=== PATIENT | male | born 1990 | race African-American/Black ===

== ENCOUNTER 2017-03-31 02:22 | Emergency (ER) | payer MEDICAID ==
[~2017-03-31] VITALS: Ht 177.8 cm; Wt 81.6 kg
[2017-03-31 02:35] VITALS: BP 164/103
[2017-03-31] MEDS ORDERED: KETOROLAC TROMETH 60MG/2ML VIAL IM ONE (07:30)
== END 2017-03-31 19:25 | disposition home or self-care (01) ==
LOC: ER 02:22
DX: M43.6 Torticollis (principal); F17.210 Nicotine dependence, cigarettes, uncomplicated; X50.1XXA Overexertion from prolonged static or awkward postures, initial encounter; Y93.89 Activity, other specified; Y99.8 Other external cause status; Y92.89 Other specified places as the place of occurrence of the external cause
CPT/HCPCS: 99283; J1885

== ENCOUNTER → 2017-09-20 | Emergency (ER) | payer MEDICAID | END | disposition left against medical advice (07) | LOC: ER 18:32 | DX: M54.2 Cervicalgia (principal); Z53.21 Procedure and treatment not carried out due to patient leaving prior to being seen by health care provider ==

== ENCOUNTER 2019-05-08 09:50 | Emergency (ER) | payer MEDICAID ==
[~2019-05-08] VITALS: Ht 175.3 cm; Wt 90.7 kg
[2019-05-08 10:01] VITALS: BP 148/83
== END 2019-05-08 12:50 | disposition home or self-care (01) ==
LOC: ER 09:53
DX: G44.209 Tension-type headache, unspecified, not intractable (principal); H81.12 Benign paroxysmal vertigo, left ear; F17.210 Nicotine dependence, cigarettes, uncomplicated

== ENCOUNTER 2019-10-21 01:15 | Emergency (ER) | payer MEDICAID ==
[~2019-10-21] VITALS: Ht 175.3 cm; Wt 90.5 kg
[2019-10-21 06:34] VITALS: BP 136/87
== END 2019-10-21 07:37 | disposition home or self-care (01) ==
LOC: ER 01:15
DX: R51 Headache (principal); R42 Dizziness and giddiness; G47.9 Sleep disorder, unspecified; F17.210 Nicotine dependence, cigarettes, uncomplicated
CPT/HCPCS: 70450

== ENCOUNTER 2019-11-13 17:49 | Emergency (ER) | payer MEDICAID ==
[~2019-11-13] VITALS: Ht 175.3 cm; Wt 92.1 kg
[2019-11-13 18:30] VITALS: BP 159/93
== END 2019-11-13 20:58 | disposition left against medical advice (07) ==
LOC: ER 17:49
DX: M54.2 Cervicalgia (principal); Z53.21 Procedure and treatment not carried out due to patient leaving prior to being seen by health care provider

== ENCOUNTER 2019-12-08 20:35 | Emergency (ER) | payer MEDICAID ==
[~2019-12-08] VITALS: Ht 177.8 cm; Wt 90.3 kg
[2019-12-08 20:56] VITALS: BP 137/87
== END 2019-12-08 23:53 | disposition left against medical advice (07) ==
LOC: ER 20:35
DX: M54.2 Cervicalgia (principal); Z53.21 Procedure and treatment not carried out due to patient leaving prior to being seen by health care provider

== ENCOUNTER 2019-12-17 22:59 | Emergency (ER) | payer MEDICAID ==
[~2019-12-17] VITALS: Ht 175.3 cm; Wt 91.2 kg
[2019-12-18] MEDS ORDERED: PROMETHAZINE-DM 5 ML ORAL SYRUP PO ONE (00:30)
[2019-12-18] MEDS ORDERED: ACETAMINOPHEN 500 MG TAB PO ONE (00:30)
[2019-12-18 00:55] VITALS: BP 135/70
== END 2019-12-18 01:02 | disposition home or self-care (01) ==
LOC: ER 22:59
DX: J06.9 Acute upper respiratory infection, unspecified (principal); M79.10 Myalgia, unspecified site; F17.210 Nicotine dependence, cigarettes, uncomplicated
CPT/HCPCS: 70450; 71045

== ENCOUNTER → 2020-01-30 | Emergency (ER) | payer MEDICAID ==
[~2020-01-30] VITALS: Ht 177.8 cm; Wt 92.5 kg
[2020-01-30 23:30] VITALS: BP 132/96
== END | disposition home or self-care (01) ==
LOC: ER 23:14
DX: K08.89 Other specified disorders of teeth and supporting structures (principal); Z53.21 Procedure and treatment not carried out due to patient leaving prior to being seen by health care provider

== ENCOUNTER 2020-06-17 08:06 | Emergency (ER) | payer MEDICAID ==
[~2020-06-17] VITALS: Ht 175.3 cm; Wt 88.5 kg
[2020-06-17 08:22] VITALS: BP 149/83
== END 2020-06-17 10:06 | disposition home or self-care (01) ==
LOC: ER 08:06
DX: S96.911A Strain of unspecified muscle and tendon at ankle and foot level, right foot, initial encounter (principal); J40 Bronchitis, not specified as acute or chronic; F17.210 Nicotine dependence, cigarettes, uncomplicated; X58.XXXA Exposure to other specified factors, initial encounter; Y93.89 Activity, other specified; Y92.89 Other specified places as the place of occurrence of the external cause; Y99.8 Other external cause status
CPT/HCPCS: 71045; 73600

== ENCOUNTER 2020-11-29 16:33 | Emergency (ER) | payer MEDICAID ==
[~2020-11-29] VITALS: Ht 172.7 cm; Wt 92.5 kg
[2020-11-29 16:38] VITALS: BP 143/97
[2020-11-29] MEDS ORDERED: IBUPROFEN 800 MG TAB PO ONE (17:45)
== END 2020-11-29 17:49 | disposition home or self-care (01) ==
LOC: ER 16:33
DX: M79.672 Pain in left foot (principal); F17.210 Nicotine dependence, cigarettes, uncomplicated
CPT/HCPCS: 73630

== ENCOUNTER 2022-01-05 | Emergency (ER) | payer MEDICAID ==
[~2022-01-05] VITALS: Ht 185.4 cm; Wt 117.9 kg
[2022-01-05] MEDS ORDERED: LORazepam 2MG/ML-1ML VIAL IV ONE (00:30)
[2022-01-05] MEDS ORDERED: HALOPERIDOL LACTATE 5 MG/ML INJ VIAL IM ONE (00:45)
[2022-01-05 02:18] LABS: Amphetamine Screen, Urine NEGATIVE (NEGATIVE); Barbiturate Scree,Urine NEGATIVE (NEGATIVE); Benzodiazephine Screen, Urine NEGATIVE (NEGATIVE); Cannabinoid Screen, Urine NEGATIVE (NEGATIVE); Cocaine Screen, Urine NEGATIVE (NEGATIVE); Opiate Scree,Urine NEGATIVE (NEGATIVE); Phencyclidine Screen, Urine NEGATIVE (NEGATIVE)
[2022-01-05 02:27] LABS: Urine Bacteria NONE SEEN /hpf (None Seen); Urine Blood Negative /uL (Negative); Urine Hyaline Cast FEW /lpf (0 - 2); Urine Specific Gravity 1.008 (1.001-1.035); Urine WBC <1 /hpf (0 - 3)
[2022-01-05 03:38] LABS: Basophils # (auto) 0.1 10 ^3/uL (0-0.2); Basophils % (auto) 0.5 % (0.0-2.0); Eosinophils # (auto) 0 10 ^3/uL (0-0.8); Hematocrit 49.1 % (41.0-53.0); Hemoglobin 16.4 g/dL (13.5-17.5); Lymphocytes # (auto) 1.3 10 ^3/uL (0.4-5.4); Lymphocytes % (auto) 10.9 % (10.0-50.0); Mean Corpuscular Hemoglobin 28.8 pg (28.0-32.0); Mean Corpuscular Hgb Conc. 33.5 g/dL (32.0-36.0); Mean Corpuscular Volume 85.9 fL (80.0-100.0); Monocytes # (auto) 0.4 10 ^3/uL (0-1.3); Monocytes % (auto) 3.8 % (0.0-12.0); Neutrophils # (auto) 9.8 10 ^3/uL (1.6-8.6); Neutrophils % (auto) 84.8 % (37.0-80.0); Nucleated Red Blood Cells % 0.1 %; Red Blood Cells 5.71 10^6/uL (4.5-5.90); White Blood Cell 11.6 10^3/uL (4.4-10.8)
[2022-01-05 03:48] LABS: Potassium 4.5 mmol/L (3.5-5.1)
[2022-01-05 03:50] LABS: BUN/Creatinine Ratio 9.4
[2022-01-05 03:53] LABS: Bilirubin, Total 0.3 mg/dL (0.2-1.0); Total Protein 7.7 g/dL (6.4-8.2)
[2022-01-05 06:43] VITALS: BP 112/70
== END 2022-01-05 06:46 | disposition home or self-care (01) ==
LOC: EDUNIT# → EDBD → ER 00:05
DX: F15.10 Other stimulant abuse, uncomplicated (principal); F12.10 Cannabis abuse, uncomplicated; F17.210 Nicotine dependence, cigarettes, uncomplicated
CPT/HCPCS: 36415; 80053; 80307; 81001; 85025; 96372; 96374; 99285; J1630; J2060

== ENCOUNTER 2022-05-12 07:57 | Emergency (ER) | payer MEDICAID ==
[~2022-05-12] VITALS: Ht 175.3 cm; Wt 75.0 kg
[2022-05-12] MEDS ORDERED: HYDR50CA PO (08:57)
[2022-05-12 09:02] VITALS: BP 144/92
== END 2022-05-12 09:07 | disposition home or self-care (01) ==
LOC: ER 07:57
DX: G47.00 Insomnia, unspecified (principal); F17.210 Nicotine dependence, cigarettes, uncomplicated; Z76.0 Encounter for issue of repeat prescription; Z79.899 Other long term (current) drug therapy

== ENCOUNTER 2022-09-02 19:46 | Emergency (ER) | payer MEDICAID ==
[~2022-09-02] VITALS: Ht 175.3 cm; Wt 90.7 kg
[~2022-09-02 19:46] MED LIST: HYDR50CA PO
[2022-09-02 21:49] VITALS: BP 130/89
== END 2022-09-02 22:02 | disposition home or self-care (01) ==
LOC: ER 19:46
DX: Z00.00 Encounter for general adult medical examination without abnormal findings (principal); F17.210 Nicotine dependence, cigarettes, uncomplicated; F12.90 Cannabis use, unspecified, uncomplicated; F15.90 Other stimulant use, unspecified, uncomplicated; Z59.00 Homelessness unspecified

== ENCOUNTER 2022-10-19 10:50 | Emergency (ER) | payer MEDICAID ==
[~2022-10-19] VITALS: Ht 172.7 cm; Wt 93.1 kg
[2022-10-19 11:58] LABS: Basophils # (auto) 0 10 ^3/uL (0-0.2); Basophils % (auto) 0.3 % (0.0-2.0); Eosinophils # (auto) 0.1 10 ^3/uL (0-0.8); Eosinophils % (auto) 0.8 % (0.0-7.0); Hematocrit 50.3 % (41.0-53.0); Hemoglobin 17.2 g/dL (13.5-17.5); Lymphocytes # (auto) 2.4 10 ^3/uL (0.4-5.4); Lymphocytes % (auto) 25.8 % (10.0-50.0); Mean Corpuscular Hemoglobin 29.8 pg (28.0-32.0); Mean Corpuscular Hgb Conc. 34.2 g/dL (32.0-36.0); Mean Corpuscular Volume 87.3 fL (80.0-100.0); Monocytes # (auto) 0.7 10 ^3/uL (0-1.3); Monocytes % (auto) 7.1 % (0.0-12.0); Neutrophils # (auto) 6.1 10 ^3/uL (1.6-8.6); Nucleated Red Blood Cells % 0.2 %; Red Blood Cells 5.76 10^6/uL (4.5-5.90); Red Cell Distribution Width 13.2 % (11.8-14.3); White Blood Cell 9.2 10^3/uL (4.4-10.8)
[2022-10-19 12:09] LABS: Calcium 9.4 mg/dL (8.5-10.1); Potassium 4.5 mmol/L (3.5-5.1)
[2022-10-19 12:15] LABS: Albumin 4.4 g/dL (3.4-5.0); BUN/Creatinine Ratio 13.1; Bilirubin, Total 0.4 mg/dL (0.2-1.0); Total Protein 8.3 g/dL (6.4-8.2)
[2022-10-19 13:01] LABS: INR 0.96 (0.9-1.15); Partial Thromboplastin Time 31.6 sec (24.6-33.4)
[2022-10-19 13:22] LABS: Urine Bacteria NONE SEEN /hpf (None Seen); Urine Blood Negative /uL (Negative); Urine Specific Gravity 1.015 (1.001-1.035); Urine WBC <1 /hpf (0 - 3)
[2022-10-19 13:34] LABS: Alcohol, Urine < 3.0 mg/dL (0-10); Amphetamine Screen, Urine NEGATIVE (NEGATIVE); Barbiturate Scree,Urine NEGATIVE (NEGATIVE); Benzodiazephine Screen, Urine NEGATIVE (NEGATIVE); Cannabinoid Screen, Urine NEGATIVE (NEGATIVE); Cocaine Screen, Urine NEGATIVE (NEGATIVE); Opiate Scree,Urine NEGATIVE (NEGATIVE); Phencyclidine Screen, Urine NEGATIVE (NEGATIVE)
[2022-10-19 18:58] VITALS: BP 150/97
== END 2022-10-19 19:00 | disposition home or self-care (01) ==
LOC: ER 10:50
DX: R06.02 Shortness of breath (principal); G47.30 Sleep apnea, unspecified; Z79.899 Other long term (current) drug therapy
CPT/HCPCS: 36415; 71046; 80053; 80307; 81001; 83735; 83880; 84484; 85025; 85379; 85610; 85730; 93005

== ENCOUNTER 2024-01-10 21:42 | Emergency (ER) | payer SELFPAY ==
[~2024-01-10] VITALS: Ht 172.7 cm; Wt 82.2 kg
[2024-01-10 22:05] VITALS: BP 151/104; PULSE 75; RESP 16; TEMP 98.4; O2SAT 100
[2024-01-11] MEDS ORDERED: IBUP-1456 PO (02:35)
== END 2024-01-11 02:58 | disposition home or self-care (01) ==
LOC: ER 21:42
DX: M79.642 Pain in left hand (principal); M79.641 Pain in right hand; F17.210 Nicotine dependence, cigarettes, uncomplicated; Z79.1 Long term (current) use of non-steroidal anti-inflammatories (NSAID); Z79.899 Other long term (current) drug therapy

== ENCOUNTER 2024-02-06 00:28 | Emergency (ER) | payer SELFPAY ==
[~2024-02-06] VITALS: Ht 172.7 cm; Wt 79.0 kg
[~2024-02-06 00:28] MED LIST changes: +IBUP-1456 PO
[2024-02-06] MEDS ORDERED: PRED20TA2 PO (02:03)
[2024-02-06] MEDS ORDERED: IBUP1TAB5 PO (02:03)
[2024-02-06 02:15] VITALS: BP 142/89; PULSE 105; RESP 16; TEMP 98.3; O2SAT 97
[2024-02-06] MEDS: IBUPROFEN 800 MG TAB PO ONE (02:25)
[2024-02-06] MEDS: predniSONE 20 MG TAB PO ONE (02:26)
== END 2024-02-06 02:30 | disposition home or self-care (01) ==
LOC: ER 00:28
DX: M25.532 Pain in left wrist (principal); M25.531 Pain in right wrist; R20.2 Paresthesia of skin; F17.210 Nicotine dependence, cigarettes, uncomplicated; Z79.1 Long term (current) use of non-steroidal anti-inflammatories (NSAID); Z79.899 Other long term (current) drug therapy
CPT/HCPCS: 99283; J7512

== ENCOUNTER 2024-02-11 01:19 | Emergency (ER) | payer MEDICAID, OTHER ==
[~2024-02-11] VITALS: Ht 172.7 cm; Wt 80.5 kg
[~2024-02-11 01:19] MED LIST changes: +IBUP1TAB5 PO; +PRED20TA2 PO
[2024-02-11 01:26] VITALS: BP 140/90; PULSE 76; RESP 18; TEMP 97.9; O2SAT 97
[2024-02-11] MEDS ORDERED: NABU-72 PO (03:25)
== END 2024-02-11 03:44 | disposition home or self-care (01) ==
LOC: ER 01:19
DX: M79.10 Myalgia, unspecified site (principal); R51.9 Headache, unspecified; F17.210 Nicotine dependence, cigarettes, uncomplicated; F15.90 Other stimulant use, unspecified, uncomplicated; Z79.899 Other long term (current) drug therapy

== ENCOUNTER 2024-02-14 01:05 | Emergency (ER) | payer MEDICAID ==
[~2024-02-14] VITALS: Ht 172.7 cm; Wt 77.2 kg
[~2024-02-14 01:05] MED LIST changes: +NABU-72 PO
[2024-02-14 01:13] VITALS: BP 140/91; PULSE 81; RESP 18; TEMP 99.5
[2024-02-14 04:31] VITALS: O2SAT 100
== END 2024-02-14 04:46 | disposition home or self-care (01) ==
LOC: ER 01:05
DX: R51.9 Headache, unspecified (principal); F17.210 Nicotine dependence, cigarettes, uncomplicated; F15.10 Other stimulant abuse, uncomplicated
CPT/HCPCS: 70450

== ENCOUNTER 2024-08-16 16:56 | Emergency (ER) | payer MEDICAID ==
[~2024-08-16] VITALS: Ht 172.7 cm; Wt 74.2 kg
[2024-08-16 17:12] VITALS: BP 142/65; PULSE 92; RESP 18; O2SAT 98
--- NOTE | 2024-08-16 17:19 | ED.PDOC ---
History of Present Illness HPI Comments This is a 34-year-old male who comes in with chief complaint of tension headache. The patient states that the headache is on the right-hand side. The patient denies any nausea, vomiting or diarrhea. The patient denies any fever or chills. The patient states that he has been dealing with this headache for a pproximately 2-1/2 years. The patient states he does not have a primary care doctor at this time. At this time, the patient states that he is pain-free. Chief Complaint: Headache Time Seen by MD: 17:05 Primary Care Provider: NONE Reviewed Notes: Nurses Notes, Medications, Allergies (No allergies to medications) Allergies: Coded Allergies: NO KNOWN ALLERGIES (Unverified , 07/07/10) Home Meds Active Scripts Nabumetone (Nabumetone) 500 Mg Tab, 1 TAB PO BID PRN, #30 TAB Prov:ROSARIO SINCLAIR VOLUNTEER SERVICES SPECIALIST 02/11/24 Prednisone (Prednisone) 20 Mg Tab, 1 TAB PO DAILY PRN for 5 Days, #5 TAB Start tomorrow with foodstart tomorrowwith food Prov:ISRRAEL HARRELLALDA Q HYDROGENATION OPERATOR 02/06/24 Ibuprofen Micronized (Ibuprofen) 600 Mg Tab, 1 TAB PO Q6HPRN PRN, #20 TAB Prov:JULIO CESARNORALDA Q HYDROGENATION OPERATOR 02/06/24 Ibuprofen (Ibuprofen) 800 Mg Tab, 1 TAB PO TID PRN, #30 TAB 0 Refills Prov:CHRISTIN TIAN 01/11/24 Hydroxyzine Pamoate (Vistaril) 50 Mg Cap, 50 MG PO QHSP PRN, #20 CAP Prov:SCOT DHALIWAL 05/12/22 Information Source: Patient Mode of Arrival: Ambulatory Severity: Mild Timing: Months Duration: Intermittent Prehospital treatment: None Associated signs and symptoms No nausea or vomiting Past Medical History PAST MEDICAL HISTORY: Denies Surgical History: Denies all surgeries Family History Family History: Unknown Social History Smoker: Cigarettes, Less Than 1 Pack/Day Alcohol: Occasionally Drugs: Marijuana, Methamphetamine Lives In: Home Constitutional: denies: chills, diaphoresis, fatigue, fever, malaise, sweats, weakness, others EENTM: denies: blurred vision, double vision, ear bleeding, ear discharge, ear drainage, ear pain, ear ringing, eye pain, eye redness, hearing loss, mouth pain, mouth swelling, nasal discharge, nose bleeding, nose congestion, nose pain, photophobia, tearing, throat pain, throat swelling, voice changes, others Respiratory: denies: cough, hemoptysis, orthopnea, SOB at rest, shortness of breath, SOB with excertion, stridor, wheezing, others Cardiovascular: denies: chest pain, dizzy spells, diaphoresis, Dyspnea on exertion, edema, irregular heart beat, left arm pain, lightheadedness, palpitations, PND, syncope, others Gastrointestinal: denies: abdomen distended, abdominal pain, blood streaked bowels, constipated, diarrhea, dysphagia, difficulty swallowing, hematemesis, melena, nausea, poor appetite, poor fluid intake, rectal bleeding, rectal pain, vomiting, others Genitourinary: denies: burning, dysuria, flank pain, frequency, hematuria, incontinence, penile discharge, penile sore, pain, testicle pain, testicle swelling, urgency, others Neurological: denies: dizziness, fainting, headache, left sided numbness, left sided weakness, numbness, paresthesia, pre-existing deficit, right sided numbness, right sided weakness, seizure, speech problems, tingling, tremors, weakness, others Musculoskeletal: denies: back pain, gout, joint pain, joint swelling, muscle pain, muscle stiffness, neck pain, others Integumetry: denies: bruises, change in color, change in hair/nails, dryness, laceration, lesions, lumps, rash, wounds, others Allergic/Immunocompromised: denies: Difficulty Healing, Frequent Infections, Hives, Itching, others Hematologic/Lymphatic: denies: anemia, blood clots, easy bleeding, easy bruising, swollen glands, others Endocrine: denies: excessive hunger, excessive sweating, excessive thirst, excessive urination, flushing, intolerance to cold, intolerance to heat, unexplained weight gain, unexplained weight loss, others Psychiatric: denies: anxiety, bipolar disorder, depression, hopeless, panic disorder, schizophrenia, sleepless, suicidal, others Physical Exam General Appearance: No Apparent Distress HEENT: Normal ENT Inspection, Pharynx Normal, TMs Normal Neck: Full Range of Motion, Non-Tender, Normal, Normal Inspection Respiratory: Chest Non-Tender, Lungs Clear, No Accessory Muscle Use, No Respiratory Distress, Normal Breath Sounds Cardiovascular: No Edema, No JVD, No Murmur, No Gallop, Normal Peripheral Pulses, Regular Rate/Rhythm Breast Exam: Deferred Gastrointestinal: No Organomegaly, Non Tender, No Pulsatile Mass, Normal Bowel Sounds, Soft Genitalia: Deferred Pelvic: Deferred Rectal: Deferred Extremities: No calf tenderness, Normal capillary refill, Normal inspection, Normal range of motion, Non-tender, No pedal edema Musculoskeletal : Apperance: Normal Neurologic: Alert, plant safety leader II-XII nml as Tested, No Motor Deficits, Normal Affect, Normal Mood, No Sensory Deficits Cerebellar Function: Normal Reflexes: Normal Skin: Dry, Normal Color, Warm Lymphatic: No Adenopathy Was a procedure done? Was a procedure done?: No Differential Dx Considerations may include: Tension headache, migraine headache X-Ray, Labs, Meds, VS The patient was currently pain-free The patient was being discharged and told to follow up with his primary care doctor The patient will return to the emergency department's the condition worsens. Time of 1ST Reevaluation: 17:18 Reevaluation 1ST: Improved Patient Education/Counseling: Diagnosis, Treatment, Prognosis, Need For Follow Up Family Education/Counseling: No Family Present Departure 1 Departure Time of Disposition: 17:18 Impression: Primary Impression: Tension headache Disposition: 01 HOME / SELF CARE / HOMELESS Condition: Fair Discharged With: Self Critical Care Note Critical Care Time?: No Stability Stability form required: No Heart Score Heart Score: Heart Score Response (Comments) Value History N/A 0 EKG N/A 0 Age N/A 0 Risk Factors N/A 0 Troponin N/A 0 Total 0 NEPTALI SEYMOUR MD Aug 16, 2024 17:19
== END 2024-08-16 18:10 | disposition home or self-care (01) ==
LOC: ER 16:56
DX: G44.209 Tension-type headache, unspecified, not intractable (principal); F17.210 Nicotine dependence, cigarettes, uncomplicated; F12.90 Cannabis use, unspecified, uncomplicated; F15.90 Other stimulant use, unspecified, uncomplicated; Z79.899 Other long term (current) drug therapy

== ENCOUNTER 2024-08-27 13:39 | Emergency (ER) | payer MEDICAID ==
[~2024-08-27] VITALS: Ht 172.7 cm; Wt 70.9 kg
[2024-08-27 15:34] VITALS: BP 145/100; PULSE 99; RESP 16; TEMP 99.3; O2SAT 98
[2024-08-27] MEDS ORDERED: IBUP-1454 PO (16:08)
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
[2024-08-27] MEDS: KETOROLAC TROMETH 30 MG/ML 1ML VIAL IM ONE (16:14)
== END 2024-08-27 16:08 | disposition home or self-care (01) ==
LOC: ER 13:39
DX: M25.539 Pain in unspecified wrist (principal); M79.672 Pain in left foot; M79.671 Pain in right foot; F17.210 Nicotine dependence, cigarettes, uncomplicated; Z79.1 Long term (current) use of non-steroidal anti-inflammatories (NSAID); Z91.148 Patient's other noncompliance with medication regimen for other reason; Z79.899 Other long term (current) drug therapy; W05.1XXA Fall from non-moving nonmotorized scooter, initial encounter; Y93.89 Activity, other specified; Y92.89 Other specified places as the place of occurrence of the external cause; Y99.8 Other external cause status
CPT/HCPCS: 96372; 99283; J1885

== ENCOUNTER 2024-10-02 02:09 | Emergency (ER) | payer MEDICAID ==
[~2024-10-02] VITALS: Ht 177.8 cm; Wt 75.0 kg
[~2024-10-02 02:09] MED LIST changes: +IBUP-1454 PO
[2024-10-02 03:23] LABS: Basophils # (auto) 0.2 10 ^3/uL (0-0.2); Basophils % (auto) 1.6 % (0.0-2.0); Eosinophils # (auto) 0.1 10 ^3/uL (0-0.8); Eosinophils % (auto) 0.9 % (0.0-7.0); Hematocrit 45.7 % (41.0-53.0); Hemoglobin 15.4 g/dL (13.5-17.5); Lymphocytes # (auto) 2.1 10 ^3/uL (0.4-5.4); Lymphocytes % (auto) 21.7 % (10.0-50.0); Mean Corpuscular Hgb Conc. 33.7 g/dL (32.0-36.0); Mean Corpuscular Volume 86.2 fL (80.0-100.0); Monocytes # (auto) 0.7 10 ^3/uL (0-1.3); Monocytes % (auto) 6.7 % (0.0-12.0); Neutrophils # (auto) 6.8 10 ^3/uL (1.6-8.6); Neutrophils % (auto) 69.1 % (37.0-80.0); Platelet Count (auto) 317 10^3/uL (140-450); Red Blood Cells 5.31 10^6/uL (4.5-5.90); Red Cell Distribution Width 14.2 % (11.8-14.3); White Blood Cell 9.9 10^3/uL (4.4-10.8)
[2024-10-02 03:41] LABS: Alanine Aminotransferase 32 U/L (7-40); Albumin 4.5 g/dL (3.2-4.8); Alkaline Phosphatase 75 U/L (46-116); Anion Gap 6 (5-15); Aspartate Aminotransferase 25 U/L (13-40); BUN/Creatinine Ratio 14.4 (10.0-20.0); Bilirubin, Total 0.5 mg/dL (0.2-1.0); Blood Urea Nitrogen 13 mg/dL (9-23); Calcium 10.1 mg/dL (8.7-10.4); Carbon Dioxide 30 mmol/L (20-31); Chloride 105 mmol/L (98-107); Potassium 4.2 mmol/L (3.5-5.1); Sodium 141 mmol/L (136-145); Total Protein 7.1 g/dL (5.7-8.2)
--- NOTE | 2024-10-02 04:00 | ED.PDOC ---
Psychiatric HPI Comments 34y M who presents to the ED for chief complaint of mental health. Pt presents to the ED for multiple complaints. Pt states he is here for hand pain and states " hearning noises on the top of my head." Pt states he lives with mother but states when he doesnt stay with her, he is homeless. Pt in the ED, is noted to have flight of ideas and switching from topic topic. Pt states he has been previously hospitalized for psychiatric issues but is not able to specify what dx was given. Pt otherwise denies any active suicidal ideations at this time. Chief Complaint: Mental Health Time Seen by MD: 03:57 Primary Care Provider: NONE Reviewed Notes: Nurses Notes Information Source: Patient Mode of Arrival: Ambulatory Vital Signs Vital Signs Date Time Temp Pulse Resp B/P (MAP) Pulse Ox O2 Delivery O2 Flow Rate FiO2 10/02/24 02:30 98.2 83 18 142/83 (102) 100 Physical Exam General: Awake, alert and oriented. No acute distress. Skin: Skin in warm, dry and intact without rashes or lesions. HEENT: The head is normocephalic and atraumatic. Conjunctivae are clear without exudates or hemorrhage. Sclera is non-icteric. Neck: Normal range of motion. No JVD. Cardiac: Regular rate Respiratory: No signs of respiratory distress. No Stridor. Extremities: Upper and lower extremities are atraumatic in appearance without tenderness or deformity. Neurological: The patient is awake, alert and oriented to person, place, and time with normal speech. Speech is clear. There is no facial asymmetry. Psychiatric: Rapid pressured, tangential speech. Appropriate mood and affect. Poor judgement and insight. Positive auditory hallucinations. No suicidal or homicidal ideation. Review of Systems: As stated in HPI Past Medical History PAST MEDICAL HISTORY: Denies Surgical History: Denies all surgeries Family History Family History: Reviewed,noncontributory to illness, Unknown Social History Smoker: Cigarettes, Less Than 1 Pack/Day Alcohol: Occasionally Drugs: Marijuana, Methamphetamine Lives In: Home Was a procedure done? Was a procedure done?: No Psych Differential Dx Psych. Differential Dx: Depression, Schizoprenia, Suicidal Intoxication Differential Dx: Drug-Induced Psychosis, Encephalopathy, Substance Abuse Disorder Other Differentail Dx auditory hallucinations, homelessness X-Ray, Labs, Meds, VS Vital Signs Date Time Temp Pulse Resp B/P (MAP) Pulse Ox O2 Delivery O2 Flow Rate FiO2 10/02/24 02:30 98.2 83 18 142/83 (102) 100 Lab Test 10/02/24 03:00 Range/Units White Blood Count 9.9 4.4-10.8 10^3/uL Red Blood Count 5.31 4.5-5.90 10^6/uL Hemoglobin 15.4 13.5-17.5 g/dL Hematocrit 45.7 41.0-53.0 % Mean Corpuscular Volume 86.2 80.0-100.0 fL Mean Corpuscular Hemoglobin 29.0 28.0-32.0 pg Mean Corpuscular Hemoglobin Concent 33.7 32.0-36.0 g/dL Red Cell Distribution Width 14.2 11.8-14.3 % Platelet Count 317 140-450 10^3/uL Mean Platelet Volume 7.3 6.9-10.8 fL Neutrophils (%) (Auto) 69.1 37.0-80.0 % Lymphocytes (%) (Auto) 21.7 10.0-50.0 % Monocytes (%) (Auto) 6.7 0.0-12.0 % Eosinophils (%) (Auto) 0.9 0.0-7.0 % Basophils (%) (Auto) 1.6 0.0-2.0 % Neutrophils # (Auto) 6.8 1.6-8.6 10 ^3/uL Lymphocytes # (Auto) 2.1 0.4-5.4 10 ^3/uL Monocytes # (Auto) 0.7 0-1.3 10 ^3/uL Eosinophils # (Auto) 0.1 0-0.8 10 ^3/uL Basophils # (Auto) 0.2 0-0.2 10 ^3/uL Nucleated Red Blood Cells 0.0 % Sodium Level 141 136-145 mmol/L Potassium Level 4.2 3.5-5.1 mmol/L Chloride Level 105 98-107 mmol/L Carbon Dioxide Level 30 20-31 mmol/L Anion Gap 6 5-15 Blood Urea Nitrogen 13 9-23 mg/dL Creatinine 0.90 0.700-1.30 mg/dL Glomerular Filtration Rate Calc 114 >90 mL/min BUN/Creatinine Ratio 14.4 10.0-20.0 Serum Glucose 72 L 74-106 mg/dL Calcium Level 10.1 8.7-10.4 mg/dL Total Bilirubin 0.5 0.2-1.0 mg/dL Aspartate Amino Transferase (AST) 25 13-40 U/L Alanine Aminotransferase (ALT) 32 7-40 U/L Alkaline Phosphatase 75 46-116 U/L Total Protein 7.1 5.7-8.2 g/dL Albumin 4.5 3.2-4.8 g/dL Plasma/Serum Blood Alcohol < 3.0 <10 mg/dL Time of 1ST Reevaluation: 04:30 Reevaluation 1ST: Unchanged Patient Education/Counseling: Diagnosis, Treatment Family Education/Counseling: No Family Present Departure 1 Departure Time of Disposition: 05:38 Impression: Primary Impression: Encounter for psychiatric assessment Additional Impression: Auditory hallucinations Disposition: 30 STILL A PATIENT Condition: Stable Comments 34-year-old male presents for mental health evaluation. He is reporting claim auditor y hallucinations, he is not having suicidal or homicidal ideation.. Discussed with Dr. Welsh, psychiatrist - he will assess patient. Critical Care Note Critical Care Time?: No Stability Stability form required: No Heart Score Heart Score: Heart Score Response (Comments) Value History N/A 0 EKG N/A 0 Age N/A 0 Risk Factors N/A 0 Troponin N/A 0 Total 0 I personally scribed for JUSTICE ARRIAGA MD ([email or web address]) on 10/02/24 at 04:00. Electronically submitted by Janine Stuart ([email or web address]). I personally scribed for JUSTICE ARRIAGA MD ([email or web address]) on 10/02/24 at 04:02. Electronically submitted by Janine Stuart ([email or web address]). JUSTICE ARRIAGA MD Oct 02, 2024 04:00
[2024-10-02 04:02] LABS: Glucose 72 mg/dL (74-106)
[2024-10-02 04:35] LABS: Blood Alcohol < 3.0 mg/dL (<10)
--- NOTE | 2024-10-02 06:41 | DVHINCON2 ---
Date of Service if different f: Oct 02, 2024 Time of Service: 06:08 Consultation ([facility]) Consulting Physician: CAROLINA TURNER MD Labs Laboratory Tests Test 10/02/24 03:00 White Blood Count 9.9 10^3/uL (4.4-10.8) Red Blood Count 5.31 10^6/uL (4.5-5.90) Hemoglobin 15.4 g/dL (13.5-17.5) Hematocrit 45.7 % (41.0-53.0) Mean Corpuscular Volume 86.2 fL (80.0-100.0) Mean Corpuscular Hemoglobin 29.0 pg (28.0-32.0) Mean Corpuscular Hemoglobin Concent 33.7 g/dL (32.0-36.0) Red Cell Distribution Width 14.2 % (11.8-14.3) Platelet Count 317 10^3/uL (140-450) Mean Platelet Volume 7.3 fL (6.9-10.8) Neutrophils (%) (Auto) 69.1 % (37.0-80.0) Lymphocytes (%) (Auto) 21.7 % (10.0-50.0) Monocytes (%) (Auto) 6.7 % (0.0-12.0) Eosinophils (%) (Auto) 0.9 % (0.0-7.0) Basophils (%) (Auto) 1.6 % (0.0-2.0) Neutrophils # (Auto) 6.8 10 ^3/uL (1.6-8.6) Lymphocytes # (Auto) 2.1 10 ^3/uL (0.4-5.4) Monocytes # (Auto) 0.7 10 ^3/uL (0-1.3) Eosinophils # (Auto) 0.1 10 ^3/uL (0-0.8) Basophils # (Auto) 0.2 10 ^3/uL (0-0.2) Nucleated Red Blood Cells 0.0 % Sodium Level 141 mmol/L (136-145) Potassium Level 4.2 mmol/L (3.5-5.1) Chloride Level 105 mmol/L (98-107) Carbon Dioxide Level 30 mmol/L (20-31) Anion Gap 6 (5-15) Blood Urea Nitrogen 13 mg/dL (9-23) Creatinine 0.90 mg/dL (0.700-1.30) Glomerular Filtration Rate Calc 114 mL/min (>90) BUN/Creatinine Ratio 14.4 (10.0-20.0) Serum Glucose 72 mg/dL (74-106) Calcium Level 10.1 mg/dL (8.7-10.4) Total Bilirubin 0.5 mg/dL (0.2-1.0) Aspartate Amino Transf (AST/SGOT) 25 U/L (13-40) Alanine Aminotransferase (ALT/SGPT) 32 U/L (7-40) Alkaline Phosphatase 75 U/L (46-116) Total Protein 7.1 g/dL (5.7-8.2) Albumin 4.5 g/dL (3.2-4.8) Plasma/Serum Blood Alcohol < 3.0 mg/dL (<10) Appearance: Stated age Psychomotor activity: WNL Behavioral: Cooperative Eye contact: Appropriate Speech: WNL Affect: Appropriate, Mood Congruent Mood: Dysphoric Thought processes: Linear/Goal-directed Thought content: WNL Suicidal ideations: Absent Homicidal ideations: Absent Orientation: Person, Place, Time, Situation Memory intact: Recent Intellect: Average Abstractability: WNL Concentration: Adequate Attention: Adequate Judgement: WNL Insight: Poor Vitals Vital Signs Date Time Temp Pulse Resp B/P (MAP) Pulse Ox O2 Delivery O2 Flow Rate FiO2 10/02/24 02:30 98.2 83 18 142/83 (102) 100 Treatment plan discussed: With staff Medication adjusted: No Labs ordered: No Psychotherapy provided: No Type: Voluntary History of Present Illness Reason for Consult : psychiatric evaluation PER ED PHYSICIAN: 34y M who presents to the ED for chief complaint of mental health. Pt presents to the ED for multiple complaints. Pt states he is here for hand pain and states " hearning noises on the top of my head." Pt states he lives with mother but states when he doesnt stay with her, he is homeless. Pt in the ED, is noted to have flight of ideas and switching from topic topic. Pt states he has been previously hospitalized for psychiatric issues but is not able to specify what dx was given. Pt otherwise denies any active suicidal ideations at this time. PSYCHIATRIST HPI: The patient was seen and evaluated at [facility] ED via telepsychiatry platform. 34 yr old male reported having pain in his head. He reported he thinks it is due to the cold living on the streets. He reported his mood has been okay, but sometimes he reported feeling stressed about being homeless. He stated he feels like if he is warm he might be in better shape. He denied having symptoms consistent with depression, anxiety or psychotic disorder. He denied any recent use of substances although report use of drugs in the past. He denied having SI/HI/AVH. Past Psychiatric History : No h/o hospitalization or suicide attempt. Current medications: none Past Medical History : none Substance Use: Reported infrequent alcohol use, had drank a couple beers a day in the past. MJ-no use since 2009. Reported experimenting with other drugs but no recent use. Denied other drug use. Social History : Homeless in [place]. Lives with mother from time to time. DIAGNOSIS: ADJUSTMENT DISORDER Formulation: This 34 yr old male appears to suffer from adjustment disorder and homelessness. He has difficulty with the winter cold and may benefit from speaking with social work to get homeless resources. He does not warrant psychiatric hospitalization. Plan: 1. Safety. The patient is a low risk for suicide and may be managed as an outpatient. Recommend social work consult to give homeless resources. 2. Legal-voluntary. 3. Medications: No medications indicated at this time. 4. Case discussed with ED physician, Dr Gregory Abreu. 5. Please recontact psychiatry for further follow up or reevaluation. Assessment/Diagnosis/Plan Reviewed: Labs, Medications, Previous Orders CAROLINA TURNER MD Oct 02, 2024 05:20
[2024-10-02 07:40] VITALS: PULSE 98; RESP 16; O2SAT 98
[2024-10-02 09:40] VITALS: BP 146/81; PULSE 96; RESP 18; TEMP 98.1; O2SAT 97
== END 2024-10-02 09:45 | disposition home or self-care (01) ==
LOC: ER 02:09
DX: Z00.8 Encounter for other general examination (principal); R44.0 Auditory hallucinations; M79.643 Pain in unspecified hand; F17.210 Nicotine dependence, cigarettes, uncomplicated; F43.20 Adjustment disorder, unspecified; F12.10 Cannabis abuse, uncomplicated; F15.10 Other stimulant abuse, uncomplicated; Z59.02 Unsheltered homelessness
CPT/HCPCS: 36415; 80053; 80320; 85025

== ENCOUNTER 2024-10-08 18:42 | Emergency (ER) | payer MEDICAID ==
[~2024-10-08] VITALS: Ht 172.7 cm; Wt 70.5 kg
[2024-10-08 18:50] VITALS: BP 118/95; PULSE 98; RESP 18; O2SAT 96
--- NOTE | 2024-10-08 20:51 | ED.PDOC ---
Psychiatric HPI Comments 34 YEAR OLD MALE PRESENTS TO ER FOR A "WELLNESS CHECKUP". PATIENT PRESENTS TO ER ALERT AND ORIENTED X4, IN NO DISTRESS STATING HE IS HERE FOR A "WELLNESS CHECK". DENIES ANY CURRENT SYMPTOMS/COMPLAINTS. DENIES ANY PAIN. PATIENT PRESENTS AMBULATORY ON ARRIVAL, WITH STEADY GAIT, IN NO DISTRESS. PATIENT ENDORSES NO FURTHER SYMPTOMS/COMPLAINTS Chief Complaint: Anxiety Time Seen by MD: 19:05 Primary Care Provider: UNKNOWN Reviewed Notes: Nurses Notes, Medications, Allergies Information Source: Patient Mode of Arrival: Ambulatory Past Medical History PAST MEDICAL HISTORY: Denies Surgical History: Denies all surgeries Family History Family History: Unknown Social History Smoker: Cigarettes, Less Than 1 Pack/Day Alcohol: Occasionally Drugs: Marijuana, Methamphetamine Lives In: Home Constitutional: reports: others ( STATED IN HPI) EENTM: denies: blurred vision, double vision, ear bleeding, ear discharge, ear drainage, ear pain, ear ringing, eye pain, eye redness, hearing loss, mouth pain, mouth swelling, nasal discharge, nose bleeding, nose congestion, nose pain, photophobia, tearing, throat pain, throat swelling, voice changes, others Respiratory: denies: cough, hemoptysis, orthopnea, SOB at rest, shortness of breath, SOB with excertion, stridor, wheezing, others Cardiovascular: denies: chest pain, dizzy spells, diaphoresis, Dyspnea on exertion, edema, irregular heart beat, left arm pain, lightheadedness, palpitat ions, PND, syncope, others Gastrointestinal: denies: abdomen distended, abdominal pain, blood streaked bow els, constipated, diarrhea, dysphagia, difficulty swallowing, hematemesis, melena, nausea, poor appetite, poor fluid intake, rectal bleeding, rectal pain, vomiting, others Genitourinary: denies: burning, dysuria, flank pain, frequency, hematuria, incontinence, penile discharge, penile sore, pain, testicle pain, testicle swelling, urgency, others Neurological: denies: dizziness, fainting, headache, left sided numbness, left sided weakness, numbness, paresthesia, pre-existing deficit, right sided numbness, right sided weakness, seizure, speech problems, tingling, tremors, weakness, others Musculoskeletal: denies: back pain, gout, joint pain, joint swelling, muscle pain, muscle stiffness, neck pain, others Integumetry: denies: bruises, change in color, change in hair/nails, dryness, laceration, lesions, lumps, rash, wounds, others Allergic/Immunocompromised: denies: Difficulty Healing, Frequent Infections, Hives, Itching, others Hematologic/Lymphatic: denies: anemia, blood clots, easy bleeding, easy bruising, swollen glands, others Endocrine: denies: excessive hunger, excessive sweating, excessive thirst, excessive urination, flushing, intolerance to cold, intolerance to heat, unexplained weight gain, unexplained weight loss, others Psychiatric: denies: anxiety, bipolar disorder, depression, hopeless, panic disorder, schizophrenia, sleepless, suicidal, others Physical Exam General Appearance: No Apparent Distress HEENT: Normal ENT Inspection, PERRL/EOMI, Pharynx Normal, TMs Normal Neck: Full Range of Motion, Non-Tender, Normal Respiratory: Chest Non-Tender, Lungs Clear, No Accessory Muscle Use, No Respiratory Distress, Normal Breath Sounds Cardiovascular: No Murmur, No Gallop, Regular Rate/Rhythm Breast Exam: Deferred Gastrointestinal: No Organomegaly, Non Tender, No Pulsatile Mass, Normal Bowel Sounds, Soft Genitalia: Deferred Pelvic: Deferred Rectal: Deferred Extremities: Normal capillary refill, Normal range of motion Neurologic: Alert, warper fixer II-XII nml as Tested, No Motor Deficits, Normal Affect, Normal Mood, No Sensory Deficits Cerebellar Function: Normal Reflexes: Normal Skin: Dry, Normal Color, Warm Peripheral Pulses: 2+ Radial (R), 2+ Radial (L), 2+ Brachial (R), 2+ Brachial (L) Lymphatic: No Adenopathy Was a procedure done? Was a procedure done?: No Sedation Sedation?: No Psych Differential Dx Intoxication Differential Dx: Hallucinations, Dehydration, Schizophrenia X-Ray, Labs, Meds, VS Vital Signs Date Time Temp Pulse Resp B/P (MAP) Pulse Ox O2 Delivery O2 Flow Rate FiO2 10/08/24 18:50 99.3 98 18 118/95 (103) 96 METHAMPHETAMINE/CANNABIS CESSATION DISCUSSED AND ADVISED PATIENT IN NO DISTRESS DURING ER VISIT/PRIOR TO DISCHARGE ADVISED TO DRINK PLENTY OF FLUIDS ADVISED TO FOLLOW UP WITH PCP IN 1-2 DAYS PATIENT ALERT AND ORIENTED X4 PRIOR TO DISCHARGE. PATIENT VERBALIZED UNDERSTANDING AND AGREEABLE WITH CURRENT PLAN OF CARE ADVISED TO RETURN TO ER IMMEDIATELY IF SYMPTOMS WORSEN Time of 1ST Reevaluation: 20:24 Reevaluation 1ST: N/A Patient Education/Counseling: Diagnosis, Treatment, Prognosis, Need For Follow Up Family Education/Counseling: No Family Present Departure 1 Departure Time of Disposition: 20:50 Impression: Primary Impression: Encounter for general adult medical examination w/o abnormal findings Additional Impression: Polysubstance abuse Disposition: 01 HOME / SELF CARE / HOMELESS Condition: Stable Discharged With: Self Critical Care Note Critical Care Time?: No Stability Stability form required: No Heart Score Heart Score: Heart Score Response (Comments) Value History N/A 0 EKG N/A 0 Age N/A 0 Risk Factors N/A 0 Troponin N/A 0 Total 0 CHRISTIN TIAN Oct 08, 2024 20:51
== END 2024-10-08 21:03 | disposition home or self-care (01) ==
LOC: ER 18:42
DX: F17.210 Nicotine dependence, cigarettes, uncomplicated (principal); F12.90 Cannabis use, unspecified, uncomplicated; F15.90 Other stimulant use, unspecified, uncomplicated; Z00.00 Encounter for general adult medical examination without abnormal findings

== ENCOUNTER 2024-11-02 22:41 | Emergency (ER) | payer MEDICAID ==
[~2024-11-02] VITALS: Ht 172.7 cm; Wt 71.1 kg
[2024-11-02] MEDS ORDERED: IBUP-1455 PO (22:57)
[2024-11-02] MEDS ORDERED: ACET500T58 PO (22:57)
--- NOTE | 2024-11-02 22:58 | ED.PDOC ---
Musculoskeletal HPI Comments This patient is a 34-year-old homeless male who arrives the ED today for evaluation of bilateral foot pain concerns for the past several weeks. Patient states that when he steps off of concrete onto asphalt his feet hurt. Patient denies any traumatic events. Patient currently does not have a primary care provider in his waiting for reassignment through his medical program. Vital signs were stable on arrival. Chief Complaint: Lower Extremity Time Seen by MD: 22:47 Primary Care Provider: UNKNOWN Reviewed Notes: Nurses Notes Allergies: Coded Allergies: NO KNOWN ALLERGIES (Unverified , 07/07/10) Home Meds Active Scripts Ibuprofen (Ibuprofen) 600 Mg Tab, 1 TAB PO TID for 10 Days, #30 TAB 0 Refills Prov:DEMARCO JOLLY TITLE CLERK [employer] 08/27/24 Nabumetone (Nabumetone) 500 Mg Tab, 1 TAB PO BID PRN, #30 TAB Prov:ROSARIO SINCLAIR MANAGER AGRICULTURAL 02/11/24 Prednisone (Prednisone) 20 Mg Tab, 1 TAB PO DAILY PRN for 5 Days, #5 TAB Start tomorrow with foodstart tomorrowwith food Prov:THELMA HARRELLA Q TITLE CLERK [employer] 02/06/24 Ibuprofen Micronized (Ibuprofen) 600 Mg Tab, 1 TAB PO Q6HPRN PRN, #20 TAB Prov:HARRELLNORALDA Q TITLE CLERK [employer] 02/06/24 Ibuprofen (Ibuprofen) 800 Mg Tab, 1 TAB PO TID PRN, #30 TAB 0 Refills Prov:CHRISTIN TIAN 01/11/24 Hydroxyzine Pamoate (Vistaril) 50 Mg Cap, 50 MG PO QHSP PRN, #20 CAP Prov:SCOT DHALIWAL 05/12/22 Information Source: Patient Mode of Arrival: Ambulatory Location: Bilateral Extremity Location: Foot Timing: Days Prehospital treatment: None Severity: Moderate Able to Move Extremity: Yes Bear Weight: Fully Pain: Moderate Hand Dominance: Both Mechanism: Spontaneous Circumstances: Spontaneous Onset of Symptoms: Spontaneous Symptoms: Pain DVT Risk Factors: NONE Past Medical History PAST MEDICAL HISTORY: Denies Surgical History: Denies all surgeries Family History Family History: Unknown Social History Smoker: Cigarettes, Less Than 1 Pack/Day Alcohol: Occasionally Drugs: Marijuana, Methamphetamine Lives In: Homeless Constitutional: denies: chills, diaphoresis, fatigue, fever, malaise, sweats, weakness, others EENTM: denies: blurred vision, double vision, ear bleeding, ear discharge, ear drainage, ear pain, ear ringing, eye pain, eye redness, hearing loss, mouth pain, mouth swelling, nasal discharge, nose bleeding, nose congestion, nose pain, photophobia, tearing, throat pain, throat swelling, voice changes, others Respiratory: denies: cough, hemoptysis, orthopnea, SOB at rest, shortness of breath, SOB with excertion, stridor, wheezing, others Cardiovascular: denies: chest pain, dizzy spells, diaphoresis, Dyspnea on exertion, edema, irregular heart beat, left arm pain, lightheadedness, palpitations, PND, syncope, others Gastrointestinal: denies: abdomen distended, abdominal pain, blood streaked bowels, constipated, diarrhea, dysphagia, difficulty swallowing, hematemesis, melena, nausea, poor appetite, poor fluid intake, rectal bleeding, rectal pain, vomiting, others Genitourinary: denies: burning, dysuria, flank pain, frequency, hematuria, incontinence, penile discharge, penile sore, pain, testicle pain, testicle swelling, urgency, others Neurological: denies: dizziness, fainting, headache, left sided numbness, left sided weakness, numbness, paresthesia, pre-existing deficit, right sided numbness, right sided weakness, seizure, speech problems, tingling, tremors, weakness, others Musculoskeletal: reports: others (Bilateral foot pain); denies: back pain, gout, joint pain, joint swelling, muscle pain, muscle stiffness, neck pain Integumetry: denies: bruises, change in color, change in hair/nails, dryness, laceration, lesions, lumps, rash, wounds, others Allergic/Immunocompromised: denies: Difficulty Healing, Frequent Infections, Hives, Itching, others Hematologic/Lymphatic: denies: anemia, blood clots, easy bleeding, easy bruising, swollen glands, others Endocrine: denies: excessive hunger, excessive sweating, excessive thirst, excessive urination, flushing, intolerance to cold, intolerance to heat, unexplained weight gain, unexplained weight loss, others Psychiatric: denies: anxiety, bipolar disorder, depression, hopeless, panic disorder, schizophrenia, sleepless, suicidal, others Physical Exam General Appearance: Moderate Distress ([id number] distress due to foot pain concerns), Normal HEENT: Normal ENT Inspection, Pharynx Normal, TMs Normal Neck: Full Range of Motion, Non-Tender, Normal, Normal Inspection Respiratory: Chest Non-Tender, Lungs Clear, No Accessory Muscle Use, No Respiratory Distress, Normal Breath Sounds Cardiovascular: No Edema, No JVD, No Murmur, No Gallop, Normal Peripheral Pulses, Regular Rate/Rhythm Breast Exam: Deferred Gastrointestinal: No Organomegaly, Non Tender, No Pulsatile Mass, Normal Bowel Sounds, Soft Genitalia: Deferred Pelvic: Deferred Rectal: Deferred Extremities: Other (Bilateral plantar pain on palpation. No definitive edema or ecchymosis. Patient displays text book plantar fasciitis.) Neurologic: Alert, No Motor Deficits, Normal Affect, Normal Mood, No Sensory Deficits Cerebellar Function: Normal Reflexes: Normal Skin: Dry, Normal Color, Warm Lymphatic: No Adenopathy Was a procedure done? Was a procedure done?: No Differential Diagnosis EXT Differential Diagnosis: Other (Plantar fasciitis, foot pain) X-Ray, Labs, Meds, VS Comment Spent time discussing the patient's condition with him. Advised that it appears he suffering from plantar fasciitis. Advised patient that he will need to follow up with a primary care provider once established for a possible Podiatry referral as he may benefit from insoles due to his extensive walking. Pain medication as needed. Time of 1ST Reevaluation: 22:56 Reevaluation 1ST: Improved Consultation: PCP, Other (Podiatry) Patient Education/Counseling: Diagnosis, Treatment Family Education/Counseling: Diagnosis, Treatment Departure 1 Departure Time of Disposition: 22:56 Impression: Primary Impression: Plantar fasciitis, bilateral Disposition: 01 HOME / SELF CARE / HOMELESS Condition: Stable Additional Instructions: Advised pain medication as needed and additionally, patient should follow up with the primary care provider once established for a podiatry referral and evaluation as he may benefit from insoles. e-Prescriptions Acetaminophen (Acetaminophen) 500 Mg Tab 500 MG PO Q4HPRN PRN, #30 TAB Prov: SOFIA MIGUEL PAC 11/02/24 Ibuprofen Micronized (Ibuprofen) 800 Mg Tab 800 MG PO Q8HP PRN, #30 TAB Prov: SOFIA MIGUEL PAC 11/02/24 Discharged With: Self Critical Care Note Critical Care Time?: No Stability Stability form required: No Heart Score Heart Score: Heart Score Response (Comments) Value History N/A 0 EKG N/A 0 Age N/A 0 Risk Factors N/A 0 Troponin N/A 0 Total 0 SOFIA MIGUEL [facility] Nov 02, 2024 22:58
[2024-11-03] MEDS: IBUPROFEN 800 MG TAB PO ONE (00:02)
[2024-11-03 00:04] VITALS: BP 146/92; PULSE 88; RESP 18; TEMP 97.6; O2SAT 97
== END 2024-11-03 00:06 | disposition home or self-care (01) ==
LOC: ER 22:41
DX: M72.2 Plantar fascial fibromatosis (principal); F17.210 Nicotine dependence, cigarettes, uncomplicated; F12.10 Cannabis abuse, uncomplicated; F15.10 Other stimulant abuse, uncomplicated; Z59.00 Homelessness unspecified; Z79.1 Long term (current) use of non-steroidal anti-inflammatories (NSAID)

== ENCOUNTER 2024-11-09 03:23 | Emergency (ER) | payer MEDICAID ==
[~2024-11-09] VITALS: Ht 172.7 cm; Wt 71.0 kg
[~2024-11-09 03:23] MED LIST changes: +ACET500T58 PO; +IBUP-1455 PO
[2024-11-09 03:30] VITALS: BP 136/91; PULSE 91; RESP 12; O2SAT 99
== END 2024-11-09 05:07 | disposition left against medical advice (07) ==
LOC: ER 03:23
DX: M79.644 Pain in right finger(s) (principal); Z53.21 Procedure and treatment not carried out due to patient leaving prior to being seen by health care provider

== ENCOUNTER 2024-11-19 22:44 | Emergency (ER) | payer MEDICAID ==
[~2024-11-19] VITALS: Ht 172.7 cm; Wt 69.0 kg
[2024-11-19 22:54] VITALS: BP 153/101; PULSE 97; RESP 16; O2SAT 100
== END 2024-11-20 01:00 | disposition left against medical advice (07) ==
LOC: ER 22:44
DX: R51.9 Headache, unspecified (principal); Z53.21 Procedure and treatment not carried out due to patient leaving prior to being seen by health care provider